=== PATIENT | female | born 1950 | race Caucasian/White ===

== ENCOUNTER 2018-04-26 22:08 | Emergency (ER) | payer OTHER, MEDICARE ==
[~2018-04-26 22:08] MED LIST: PERCOCET 5-3251 EACH PO
[2018-04-26 23:02] VITALS: BP 127/78
[2018-04-26] MEDS ORDERED: ACETAMINOPHEN-1 EAC3 PO (23:03)
[2018-04-26] MEDS ORDERED: LISINOPRIL10 M1 PO (23:03)
[2018-04-26] MEDS ORDERED: SERTRALINE HCL100 MG PO (23:03)
[2018-04-26] MEDS ORDERED: ATORVASTATIN CA20 M1 PO (23:03)
[2018-04-26] MEDS ORDERED: CICLOPIROX15 GM TOP (23:04)
[2018-04-26] MEDS ORDERED: TRAMADOL HCL50 M1 PO (23:06)
--- NOTE | 2018-04-26 23:06 | ED UPPER/LOWER EXTREMITY COMPL ---
History of Present Illness General Chief Complaint: Lower Extremity Problems Stated Complaint: KNEE PAIN Source: patient, family Exam Limitations: no limitations Vital Signs & Intake/Output Vital Signs & Intake/Output Vital Signs Date Time Temp Pulse Resp B/P B/P Pulse O2 O2 Flow FiO2 Mean Ox Delivery Rate 04/26 2302 97.0 92 20 127/78 100 Allergies Coded Allergies: No Known Allergies (01/24/16) Reconcile Medications Acetaminophen With Codeine (Acetaminophen-Cod #3 Tablet) 300 MG-30 MG TABLET 1 TAB PO Q6P PRN PAIN (Reported) Atorvastatin Calcium 20 MG TABLET 1 TAB PO DAILY CHOL (Reported) Ciclopirox Olamine (Ciclopirox) 0.77 % CREAM..G. 1 DREA TOP BID RASH (Reported ) apply to affected area(s) Lisinopril 10 MG TABLET 1 TAB PO DAILY HTN (Reported) Oxycodone HCl/Acetaminophen (Percocet 5-325 MG Tablet) 1 EACH TABLET 1-2 TAB PO Q6P PRN PAIN Sertraline HCl 100 MG TABLET 1 TAB PO DAILY ANXIETY (Reported) Tramadol HCl 50 MG TABLET 1 TAB PO Q6P PRN PAIN Triage Note: PER PT PAIN TO L KNEE SCHEDULED FOR SURGERY TYLENOL #3 WITHOUT EFFECT Triage Nurses Notes Reviewed? yes HPI: Patient is due to have knee surgery in June. Patient takes Tylenol No. 3 as needed for the pain however the pain has been worsening and the Tylenol 3 is no longer cutting. The pain is aching and throbbing in nature. There is no radiation. Patient increases with ambulation. There is no weakness or numbness. She rates the pain as 8 out of 10. Past History Travel History Traveled to [place] past 21 day No Medical History Any Pertinent Medical History? see below for history Neurological: NONE EENT: NONE Cardiovascular: hypertension, hyperlipidemia Respiratory: NONE Gastrointestinal: NONE Hepatic: NONE Renal: NONE Musculoskeletal: NONE Psychiatric: anxiety Endocrine: NONE Surgical History Surgical History: non-contributory Psychosocial History What is your primary language Stateless Tobacco Use: Never used ETOH Use: denies use Illicit Drug Use: denies illicit drug use Family History Hx Contributory? No Review of Systems Review of Systems Constitutional: Reports: no symptoms. Respiratory: Reports: no symptoms. Cardiovascular: Reports: no symptoms. Gastrointestinal/Abdominal: Reports: no symptoms. Musculoskeletal: Reports: see HPI, joint pain. Neurological/Psychological: Reports: no symptoms. Immunological: Reports: no symptoms. Physical Exam Physical Exam General Appearance: well developed/nourished, alert, awake, anxious, moderate distress Eyes: Bilateral: PERRL, EOMI. Neck: normal inspection, supple Cardiovascular/Respiratory: normal breath sounds, normal peripheral pulses, regular rate/rhythm, no respiratory distress Knee Left: tenderness, soft tissue tenderness, limited range of motion Neurologic/Tendon: normal sensation, normal motor functions, normal tendon functions Lymphatic: no anterior cervical andrey Progress Differential Diagnosis: contusion, sprain Plan of Care: Current Medications Sig/Nyasia Start time Last Medication Dose Stop Time Status Admin Tramadol HCl 50 MG ONCE ONE 04/26 2315 UNVr (Ultram) 04/26 2316 Departure Departure Disposition: HOME OR SELF CARE Condition: Stable Clinical Impression Primary Impression: Knee pain, left Referrals: Reagan Mcfarlane MD (PCP/Family) Additional Instructions: TAKE TRAMADOL NEEDED FOR PAIN RETURN IF SYMPTOMS WORSEN OR FOR ANY CONCERNS Departure Forms: Customer Survey General Discharge Information Prescriptions: Current Visit Scripts Tramadol HCl 1 TAB PO Q6P PRN PAIN #30 TAB
== END 2018-04-26 23:14 ==
LOC: ERH 22:08
DX: M25.562 Pain in left knee (principal); I10 Essential (primary) hypertension; E78.5 Hyperlipidemia, unspecified; F41.9 Anxiety disorder, unspecified